=== PATIENT | female | born 1950 | race Caucasian/White ===

== ENCOUNTER 2021-03-28 07:40 | Outpatient (CLI) | payer MEDICARE, OTHER, SELFPAY ==
--- NOTE | 2021-03-28 07:43 | CT_ITS ---
EXAM: CT NECK WITH INTRAVENOUS CONTRAST : 1950 CLINICAL INDICATION: NECK MASS TECHNIQUE: Helically acquired images were obtained of the neck with intravenous contrast. This CT exam was performed using one or more of the following dose reduction techniques: automated exposure control, adjustment of the mA and/or kV according to patient size, and/or use of iterative reconstruction technique. This report was created using [employer] report generation technology. CONTRAST: IV 75mL [id number] COMPARISON: None. FINDINGS: NASOPHARYNX: Unremarkable. SUPRAHYOID NECK: Unremarkable. Oropharynx, oral cavity, parapharyngeal space and retropharyngeal space are unremarkable. INFRAHYOID NECK: Unremarkable. The larynx, hypopharynx and supraglottis are unremarkable. 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 THYROID: Unremarkable. No enlarged or calcified nodules. BONES/JOINTS: No acute fracture. SOFT TISSUES: Unremarkable. VASCULATURE: No acute findings. LYMPH NODES: 1 cm right-sided level 2 and 3 cervical lymph nodes raise the possibility of metastatic disease. Additional smaller level 2 lymph nodes are noted bilaterally. LUNG APICES: Unremarkable as visualized. CT/Soft Tissue Neck WITH Contrast IMPRESSION: 3.2 x 1.6 cm right parotid mass which may represent primary parotid neoplasm or metastatic disease. Mild cervical lymphadenopathy of uncertain significance. Individualized dose optimization techniques were used for this CT. at 0902 Reported and signed by: Tian Stubbs MD Electronically Signed: Tian Stubbs MD at 9:01 EST Tel , Service support ,
[2021-03-28 07:56] LABS: CREATININE FINGERSTICK 0.9 mg/dL (0.55-1.02); EGFR FINGERSTICK > 60.0000 mL/min (>60)
== END 2021-03-28 23:59 | disposition short-term general hospital (02) ==
LOC: CT 07:41
PROVIDERS: PCP Nurse Practitioner Family; Referring Provider Otolaryngology; Visit Provider Otolaryngology
DX: R22.1 Localized swelling, mass and lump, neck (principal)
CPT/HCPCS: 70491; Q9967

== ENCOUNTER → 2024-01-02 | Outpatient (CLI) | payer MEDICARE, OTHER, SELFPAY ==
--- NOTE | 2024-01-02 | LES_PTH ---
PATHOLOGY RESULTS PATIENT: CHUCK KABA [id number] AGE/SX: 73/F ROOM: RE01/02/[address]: Dr. Garett Aguiar MD : 1950 BED: DIS: 01/02/2024 SPEC #: [id number] RECD: 01/02/24 13:14 STATUS: OMER CECE #: [id number] CINDY: 01/02/24 00:[address]: Garett Aguiar DEPT: SURGICAL PATHOLOGY RECD BY: Hans Storm ENTERED: 01/02/24 13:42 SP TYPE: Lesion OTHR DR: MOIZ Velazquez Tissues: Skin of forehead Skin of eyelid, NOS Skin of eyelid, NOS Procedures: Surgery Specimen Level IV HEADER OPERATION: Biopsies of face skin lesion PRE-OP DIAGNOSIS: Face lesion TISSUE SUBMITTED: A- Forehead lesion, B- Lateral right eyelid lesion, C- Lower right eyelid lesion MICROSCOPIC DIAGNOSIS A. 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 Negative for malignancy. B. Lateral right eyelid lesion, biopsy: Seborrheic keratosis with focal features of verrucous keratosis. Epidermal inclusion cyst. C. Right lower eyelid lesion, biopsy: Compound nevus with predominantly intradermal component. Epidermal inclusion cyst. LEX. 01/05/2024 MICROSCOPIC DESCRIPTION Slides are reviewed. GROSS DESCRIPTION A. Received in fixative is one container labeled with the patient's name and designated Forehead lesion. The specimen consists of leo-white skin ellipse measuring 0.6 x 0.2 x 0.1cm. The entire specimen is submitted in one cassette. B. Received in fixative is one container labeled with the patient's name and designated Lateral right eyelid lesion. The specimen consists of a fragment of leo-brown skin measuring 0.1 x 0.1 x 0.1cm. The entire specimen is submitted in one cassette. C. Received in fixative is one container labeled with the patient's name and designated Lower right eyelid lesion. The specimen consists of a piece of leo-white skin measuring 0.4 x 0.2 x 0.1cm. The specimen is inked and submitted entirely in one cassette. 01/02/2024 TC:1 CPT:68281k4
--- NOTE | 2024-01-02 | LES_PTH ---
PATHOLOGY RESULTS PATIENT: CHUCK KABA [id number] AGE/SX: 73/F ROOM: RE01/02/[address]: Dr. Garett Aguiar MD : 1950 BED: DIS: 01/02/2024 SPEC #: [id number] RECD: 01/02/24 13:14 STATUS: OMER CECE #: [id number] CINDY: 01/02/24 00:[address]: Garett Aguiar DEPT: SURGICAL PATHOLOGY RECD BY: Hnas Storm ENTERED: 01/02/24 13:42 SP TYPE: Lesion OTHR DR: MOIZ Velazquez Tissues: Skin of forehead Skin of eyelid, NOS Skin of eyelid, NOS Procedures: Surgery Specimen Level IV HEADER OPERATION: Biopsies of face skin lesion PRE-OP DIAGNOSIS: Face lesion TISSUE SUBMITTED: A- Forehead lesion, B- Lateral left eyelid lesion, C- Lower left eyelid lesion MICROSCOPIC DIAGNOSIS A. 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 Negative for malignancy. B. Lateral left eyelid lesion, biopsy: Seborrheic keratosis with focal features of verrucous keratosis. Epidermal inclusion cyst. C. Left lower eyelid lesion, biopsy: Compound nevus with predominantly intradermal component. Epidermal inclusion cyst. LEX. 01/05/2024 MICROSCOPIC DESCRIPTION Slides are reviewed. GROSS DESCRIPTION A. Received in fixative is one container labeled with the patient's name and designated Forehead lesion. The specimen consists of leo-white skin ellipse measuring 0.6 x 0.2 x 0.1cm. The entire specimen is submitted in one cassette. B. Received in fixative is one container labeled with the patient's name and designated Lateral left eyelid lesion. The specimen consists of a fragment of leo-brown skin measuring 0.1 x 0.1 x 0.1cm. The entire specimen is submitted in one cassette. C. Received in fixative is one container labeled with the patient's name and designated Lower left eyelid lesion. The specimen consists of a piece of leo-white skin measuring 0.4 x 0.2 x 0.1cm. The specimen is inked and submitted entirely in one cassette. 01/02/2024 TC:1 CPT:57306y8
== END | disposition home or self-care (01) ==
LOC: LABSPEC 13:31
PROVIDERS: PCP Nurse Practitioner Family; Referring Provider Surgery Plastic and Reconstructive Surgery; Visit Provider Surgery Plastic and Reconstructive Surgery
DX: L98.9 Disorder of the skin and subcutaneous tissue, unspecified (principal)
CPT/HCPCS: 88305